=== PATIENT | male | born 1955 | race American Indian/Alaskan Native ===

== ENCOUNTER 2017-02-01 09:19 | Inpatient (IN) | payer BC, OTHER ==
--- NOTE | 2017-02-01 10:14 | ED PDOC ---
Arrival/HPI - General Chief Complaint: Weakness/Neurological Deficit Time Seen by Provider: 02/01/17 09:27 Historian: Patient - History of Present Illness Narrative History of Present Illness (Text): 02/01/17 10:05 61yr old male with hx of hypertension and DM presents today with an episode of aphasia last night 8pm. pt states he was in the food storeTalking on the phone when suddenly he was unable to say how much an item cost. Patient states he was stuttering and unable to get any words out. pt states this lasted about 10 minutes and then symptoms resolved completely. Patient states when he got home he checked his blood pressure and his blood pressure was elevated. Patient states at the time that he couldn't speak he felt a tingling sensation in his left arm. Patient at present time denies headache dizziness or weakness. Denies chest pain or shortness of breath. Denies abdominal pain.patient states he has been noncompliant with his blood pressure medications. Time/Duration: Other (last night for 10 minutes) Symptom Onset: Sudden Symptom Course: Resolved Past Medical History - Provider Review Nursing Documentation Reviewed: Yes - Travel History Have you recently traveled outside [place] w/in the past 3 mons?: No - Infectious Disease Hx of Infectious Diseases: None - Tetanus Immunization Tetanus Immunization: Unknown - Cardiac Hx Hypertension: Yes - Endocrine/Metabolic Hx Diabetes Mellitus Type 2: Yes - Psychiatric Hx Substance Use: No Family/Social History - Physician Review Nursing Documentation Reviewed: Yes Family/Social History: Unknown Family HX Smoking Status: Never Smoked Hx Alcohol Use: No Hx Substance Use: No Allergies/Home Meds Allergies/Adverse Reactions: Allergies No Known Allergies Allergy (Verified 02/01/17 09:43) Home Medications: Home Meds Medication Instructions Recorded Confirmed Linagliptin/Metformin HCl 1 tab PO BID 02/01/17 02/01/17 [Jentadueto 2.5 mg-1000 mg Tab] Losartan/Hydrochlorothiazide 1 tab PO DAILY 02/01/17 02/01/17 [Losartan-Hctz 100-12.5 mg Tab] Metoprolol Succinate [Toprol XL] 200 mg PO DAILY 02/01/17 02/01/17 Repaglinide [Prandin] 1 mg PO TID 02/01/17 02/01/17 Review of Systems - Review of Systems Constitutional: absent: Fatigue, Fevers Eyes: absent: Vision Changes, Photophobia, Eye Pain Respiratory: absent: SOB, Cough Cardiovascular: absent: Chest Pain, Palpitations Gastrointestinal: absent: Abdominal Pain, Nausea, Vomiting Genitourinary Male: absent: Dysuria Musculoskeletal: absent: Arthralgias, Back Pain Skin: absent: Rash Neurological: Speech Changes. absent: Headache, Dizziness, Focal Weakness, Gait Changes, Disequilibrium, Seizure Psychiatric: absent: Anxiety, Depression, Suicidal Ideation Physical Exam Vital Signs Reviewed: Yes Vital Signs Temp Pulse Resp BP Pulse Ox 02/01/17 11:47 51 L 18 148/77 100 02/01/17 11:04 51 L 142/77 02/01/17 11:03 52 L 02/01/17 10:40 48 L 224/112 H 02/01/17 10:39 48 L 224/112 H 02/01/17 10:31 48 L 18 224/112 H 99 02/01/17 09:34 97.8 F 46 L 16 204/68 H 98 Temperature: Afebrile Blood Pressure: Normal Pulse: Regular Respiratory Rate: Normal Appearance: Positive for: Well-Appearing, Non-Toxic, Comfortable Pain Distress: None Mental Status: Positive for: Alert and Oriented X 3 - Systems Exam Head: Present: Atraumatic, Other (slight left sided facial droop) Pupils: Present: PERRL Extroacular Muscles: Present: EOMI Conjunctiva: Present: Normal Ears: Present: Normal Mouth: Present: Moist Mucous Membranes Pharnyx: Present: Normal. No: ERYTHEMA, EXUDATE, Peritonsilar Swelling, Uvular Deviation Nose (External): Present: Atraumatic Nose (Internal): Present: Clear Mucous Neck: Present: Normal Range of Motion Respiratory/Chest: Present: Clear to Auscultation, Good Air Exchange. No: Respiratory Distress, Accessory Muscle Use Cardiovascular: Present: Bradycardic Abdomen: No: Tenderness, Distention, Rebound, Guarding Back: Present: Normal Inspection Upper Extremity: Present: Normal Inspection, Normal ROM Lower Extremity: Present: Normal Inspection, Normal ROM Neurological: Present: GCS=15, Speech Normal, Gait Normal Skin: Present: Warm, Dry, Normal Color. No: Rashes Psychiatric: Present: Alert, Oriented x 3 Medical Decision Making ED Course and Treatment: 02/01/17 10:20 pt with aphasia last night, slight residual left sided asymmetry. Denying any complaints at present time. ekg; shows questionable st elevations in V2 V3 without reciprocal changes. Dr. weir immediately to bedside . dr alcantar paged. he reviewed EKG. repeat EKG sinus bradycardia with ST elevations in V2 without reciprocal changes 02/01/17 10:25 Dr. alcantar at bedside; He evaluated patient; pt without chest pain or shortness of breath, no symptoms currently; Dr. alcantar advised NO code heart. He advised IV hydralazine. 02/01/17 11:27 after IV hydralazine BP improved. pt resting comfortably; no distress. Labs reviewed. head ct; FINDINGS: HEMORRHAGE: No intracranial hemorrhage. BRAIN: The sulci and cisterns and ventricular volume all appear within normal limits diffusely. However, a pattern of mild chronic microangiopathy is appreciate the subcortical and centrum semiovale white matter of the bilateral cerebral hemispheres nevertheless. Remaining brain densities are unremarkable the throughout the cerebellum and brainstem. There is no mass effect or suspicious extra-axial fluid collection appreciated at this time. VENTRICLES: Unremarkable. No hydrocephalus. CALVARIUM: Unremarkable. PARANASAL SINUSES: Unremarkable as visualized. No significant inflammatory changes. MASTOID AIR CELLS: Unremarkable as visualized. No inflammatory changes. OTHER FINDINGS: None. IMPRESSION: Mild chronic microangiopathy is suspected. No intracranial hemorrhage, cortical edema or mass effect. Follow-up MRI or CT are available if clinically warranted. cxr; wnl ASA given PO dr. weir discussed case with dr. beltre; will admit impression; TIA, facial Asymmetry, uncontrolled hypertension admit tele. - Lab Interpretations Lab Results: 02/01/17 10:24 02/01/17 10:24 Lab Results 02/01/17 11:53: TSH 3rd Generation 1.61 02/01/17 10:24: Blood Type O POSITIVE, Antibody Screen Negative, BBK History Checked No verified bt 02/01/17 10:24: Sodium 139, Potassium 4.6, Chloride 98, Carbon Dioxide 29, Anion Gap 17, BUN 13, Creatinine 1.0, Est GFR ( Amer) > 60, Est GFR (Non- Af Amer) > 60, Random Glucose 239 H, Calcium 10.1, Total Bilirubin 0.8, AST 32, ALT 42, Alkaline Phosphatase 60, Troponin I < 0.01, Total Protein 8.5 H, Albumin 4.6, Globulin 3.9, Albumin/Globulin Ratio 1.2, Triglycerides 262 H, Cholesterol 226 H, LDL Cholesterol Direct 124, HDL Cholesterol 44 02/01/17 10:24: PT 11.0, INR 1.00, APTT 31.9 02/01/17 10:24: WBC 4.7, RBC 5.65, Hgb 16.1, Hct 47.8, MCV 84.6, MCH 28.5, MCHC 33.7, RDW 13.6, Plt Count 200, MPV 9.7, Gran % 63.6, Lymph % (Auto) 29.4, Mercer % (Auto) 6.2 H, Eos % (Auto) 0.6 L, Baso % (Auto) 0.2, Gran # 2.99, Lymph # 1.4 , Mercer # 0.3, Eos # 0.0, Baso # 0.01 - RAD Interpretation Radiology Orders: 02/01/17 09:46 HEAD W/O CONTRAST [CT] Stat CHEST PORTABLE [RAD] Stat 02/01/17 12:03 BRAIN W & WO CONTRAST [MRI] Stat MRA HEAD WITH CONTRAST [MRI] Stat CAROTID & VERTEBRAL DUPLEX [US] Stat - Medication Orders Current Medication Orders: Aspirin (Ecotrin) 325 mg PO DAILY [facility] Last Admin: 02/01/17 11:03 Dose: Enoxaparin Sodium (Lovenox) 40 mg SC DAILY [facility] PRN Reason: Protocol Hydralazine HCl (Apresoline) 50 mg PO BID [facility] Last Admin: 02/01/17 11:04 Dose: MAR Pulse and Blood Pressure Document 02/01/17 11:04 MR (Rec: 02/01/17 11:04 MR [id number]) Pulse Pulse Rate (60-90 beats/min) 51 Blood Pressure Blood Pressure (100/60-150/90 mm Hg) 142/77 Hydralazine HCl (Apresoline) 10 mg IVP Q6H PRN PRN Reason: for sbp>170 Insulin Detemir (Levemir) 10 unit SC ACBD [facility] Insulin Human Lispro (Humalog Med) 0 units SC AC [facility] PRN Reason: Protocol Losartan Potassium (Cozaar) 100 mg PO DAILY [facility] Pantoprazole Sodium (Protonix Ec Tab) 40 mg PO 0600,1600 [facility] Discontinued Medications Aspirin (Aspirin) 325 mg PO STAT STA Stop: 02/01/17 10:04 Last Admin: 10/26/17 10:41 Dose: 325 mg Hydralazine HCl (Apresoline) 10 mg IVP STAT ONE Stop: 02/01/17 10:31 Last Admin: 02/01/17 10:40 Dose: 10 mg IVP Administration Document 02/01/17 10:40 MR (Rec: 02/01/17 10:40 MR [id number]) Charges for Administration # of IVP Administrations 1 MAR Pulse and Blood Pressure Document 02/01/17 10:40 MR (Rec: 02/01/17 10:40 MR [id number]) Pulse Pulse Rate (60-90 beats/min) 48 Blood Pressure Blood Pressure (100/60-150/90 mm Hg) 224/112 Nicardipine HCl (Cardene Iv Premix) 20 mg in 200 mls @ 50 mls/hr IV .Q4H PRN; Protocol; 5 MG/HR PRN Reason: TITRATE PER MD ORDER Last Admin: 02/01/17 10:39 Dose: 50 mls/hr eMAR Start Stop Document 02/01/17 10:39 MR (Rec: 02/01/17 10:40 MR [id number]) Intravenous Solution Start Date 02/01/17 Start Time 10:40 End Date 02/01/17 End time 11:02 Total Infusion Time 22 JUN Pulse and Blood Pressure Document 02/01/17 10:39 MR (Rec: 02/01/17 10:40 MR [id number]) Pulse Pulse Rate (60-90 beats/min) 48 Blood Pressure Blood Pressure (100/60-150/90 mm Hg) 224/112 Re-Assess: Re-Assessment for infusion Document 02/01/17 11:01 MR (Rec: 02/01/17 11:01 MR [id number]) Infusion Charges Initiated Have Infusion Stop Date and Time been Yes entered? Losartan Potassium (Cozaar) 100 mg PO STAT STA Stop: 02/01/17 10:38 Last Admin: 02/01/17 11:05 Dose: Metoprolol Tartrate (Lopressor) 25 mg PO BID [facility] Last Admin: 02/01/17 11:03 Dose: Not Given Non-Admin Reason: BP Parameters Not Met MAR Pulse and Blood Pressure Document 02/01/17 11:03 MR (Rec: 02/01/17 11:03 MR [id number]) Pulse Pulse Rate (60-90 beats/min) 52 NIHSS Scale ([place]) Time Performed: 10:05 - How Severe is the Stoke Baseline Level of Consciousness: 0=Alert LOC to Questions: 0=Both comments correct LOC to commands: 0=Obeys both correctly Best Gaze: 0=Normal Visual: 0=No visual loss Facial: 1=Minor asymmetry Motor Arm - Left: 0=No drift Motor Arm - Right: 0=No drift Motor Leg - Left: 0=No drift Motor Leg - Right: 0=No drift Limb Ataxia: 0=Absent Sensory: 0=Normal Best Language: 0=No aphasia Dysarthia: 0=Normal articulation Extinction & Inattention (Neglect): 0=Normal, no object Score: 1 Risk Level: Minor Stroke Risk rTPA Inclusion/Exclusion - Refusal of Treatment Patient Refused Treatment: No - Inclusion Criteria for Altepase Patient is 18 years or Older: Yes The Clinical Diagnosis of Ischemic Stroke That is Causing a Potentially Disabling Neurological Deficit: No Time of Onset is Well Established to be Less Than 270 Minute Before Treatment Would Begin: No Risk/Benefit Discussed With Patient/Family Member Present: No Disposition/Present on Arrival - Present on Arrival Any Indicators Present on Arrival: No History of DVT/PE: No History of Uncontrolled Diabetes: No Urinary Catheter: No History of Decub. Ulcer: No History Surgical Site Infection Following: None - Disposition Have Diagnosis and Disposition been Completed?: Yes Diagnosis: TIA (transient ischemic attack), Facial asymmetry, Uncontrolled hypertension Disposition: HOSPITALIZED Disposition Time: 11:13 Patient Plan: Admission Patient Problems: Current Active Problems Problem Status Onset Facial asymmetry Acute TIA (transient ischemic attack) Acute Uncontrolled hypertension Acute Condition: FAIR
[2017-02-01] MEDS ORDERED: Lidocaine 2% Inj (20ml) ONE (10:26)
[2017-02-01] MEDS ORDERED: Nitroglycerin 50mg in D5W 0 MG/0 ML BOTTLE IV ONE (10:27)
[2017-02-01] MEDS ORDERED: Iodixanol 320 MG/ML 200 ML BOTTLE IV ONE (10:27)
[2017-02-01] MEDS ORDERED: Iodixanol 320 MG/ML 100 ML BOTTLE IV ONE (10:27)
[2017-02-01] MEDS ORDERED: Heparin 0 ML IV ONE (10:27)
[2017-02-01] MEDS ORDERED: Iohexol 350mgl/ml 50 ML ONE (10:27)
[2017-02-01] MEDS ORDERED: Phenylephrine 10 mg/ml Inj ONE (10:28)
[2017-02-01 10:29] LABS: BASO # 0.01 K/mm3 (0.0-2.0); BASO % 0.2 % (0.0-3.0); EOS % 0.6 % (1.5-5.0); GRAN # 2.99 (1.4-6.5); GRAN % 63.6 % (50.0-68.0); HEMATOCRIT 47.8 % (42.0-52.0); LYMPH # 1.4 (1.2-3.4); LYMPH % 29.4 % (22.0-35.0); MEAN CELL VOLUME 84.6 fl (80.0-105.0); MEAN CORPUSCULAR HEMOGLOBIN 28.5 pg (25.0-35.0); MEAN CORPUSCULAR HGB CONC 33.7 g/dl (31.0-37.0); MEAN PLATELET VOLUME 9.7 fl (7.0-11.0); MONO # 0.3 (0.1-0.6); MONO % 6.2 % (1.0-6.0); RED CELL DISTRIBUTION WIDTH 13.6 % (11.5-14.5); WHITE BLOOD COUNT 4.7 10^3/ul (4.5-11.0)
[2017-02-01] MEDS ORDERED: Nicardipine 20 MG/200 ML 20 MG/200 ML BAG IV PRN (10:29)
[2017-02-01 10:40] LABS: ALB/GLOB RATIO 1.2 (1.1-1.8); ALKALINE PHOSPHATASE 60 U/L (38-126); ALT/SGPT 42 U/L (7-56); AST/SGOT 32 U/L (17-59); BILIRUBIN,TOTAL 0.8 mg/dL (0.2-1.3); BLOOD UREA NITROGEN 13 mg/dL (7-21); CALCIUM 10.1 mg/dL (8.4-10.5); CARBON DIOXIDE 29 mmol/L (21-33); CHLORIDE 98 mmol/L (98-107); CHOLESTEROL 226 mg/dL (130-200); GFR AFRICAN-AMERICAN > 60; GLUCOSE,RANDOM 239 mg/dL (70-110); PARTIAL THROMBOPLASTIN TIME 31.9 Seconds (25.1-36.5); POTASSIUM 4.6 mmol/L (3.6-5.0); SODIUM 139 mmol/L (132-148); TOTAL PROTEIN 8.5 g/dL (5.8-8.3)
[2017-02-01 10:56] LABS: TROPONIN I < 0.01 ng/mL
[2017-02-01] MEDS: Aspirin 325 mg EC Tablets PO SCH (11:03)
--- NOTE | 2017-02-01 11:05 | CT ---
PROCEDURE: CT HEAD WITHOUT CONTRAST. HISTORY: aphasia which resolved. TIA COMPARISON: None available. TECHNIQUE: Axial computed tomography images were obtained through the head/brain without intravenous contrast. Radiation dose: Total exam DLP = 726.57 mGy-cm. This CT exam was performed using one or more of the following dose reduction techniques: Automated exposure control, adjustment of the mA and/or kV according to patient size, and/or use of iterative reconstruction technique. FINDINGS: HEMORRHAGE: No intracranial hemorrhage. BRAIN: The sulci and cisterns and ventricular volume all appear within normal limits diffusely. However, a pattern of mild chronic microangiopathy is appreciate the subcortical and centrum semiovale white matter of the bilateral cerebral hemispheres nevertheless. Remaining brain densities are unremarkable the throughout the cerebellum and brainstem. There is no mass effect or suspicious extra-axial fluid collection appreciated at this time. VENTRICLES: Unremarkable. No hydrocephalus. CALVARIUM: Unremarkable. PARANASAL SINUSES: Unremarkable as visualized. No significant inflammatory changes. MASTOID AIR CELLS: Unremarkable as visualized. No inflammatory changes. OTHER FINDINGS: None. IMPRESSION: Mild chronic microangiopathy is suspected. No intracranial hemorrhage, cortical edema or mass effect. Follow-up MRI or CT are available if clinically warranted.
--- NOTE | 2017-02-01 11:43 | CON ---
DATE: 02/01/2017 REASON FOR CONSULTATION: Abnormal EKG, possible code STEMI evaluation. BRIEF CLINICAL HISTORY: A 61-year-old -Gabones[place] male with past medical history significant for diabetes, hypertension, very noncompliant with the medication, takes off and on medication, multiple antihypertensive medications and yesterday came in because the patient's blood pressure was elevated and unable to talk yesterday, so the patient came to the emergency room. Denies any chest pain. Denies any shortness of breath. Denies any palpitation. EKG, admitting, shows ST elevation with conduction abnormality, so a stat cardiology consult was called for possible activation of code STEMI. PAST MEDICAL HISTORY: Significant for hypertension and borderline diabetes. SOCIAL HISTORY: Denies smoking. Denies any history of alcohol abuse. 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 CURRENT MEDICATIONS: The patient at home show metoprolol succinate 200 mg daily, losartan and hydrochlorothiazide 1 tablet daily, metformin 1 tablet daily and Prandin. REVIEW OF SYSTEMS: As follows: No chest pain. No shortness of breath. No palpitation. PHYSICAL EXAMINATION: VITAL SIGNS: Temperature afebrile, heart rate 48 and blood pressure 224/112. HEENT: PERRLA, intact. NECK: Supple. No carotid bruit or thyromegaly. CHEST: Clear to auscultation. HEART: S1 and S2 regular. ABDOMEN: Soft. EXTREMITIES: Clubbing and cyanosis negative. LABORATORY DATA: Blood workup pending. EKG showed normal sinus, incomplete right bundle branch block with ST elevation in lead V2, ST depression noted, more conduction abnormality. ASSESSMENT: Abnormal EKG, more incomplete right bundle and conduction abnormality, but no evidence of acute myocardial infarction, no evidence of chest pain, the patient denies since yesterday, more like after transient ischemic attack type, cerebrovascular accident symptoms; uncontrolled hypertension, admitting blood pressure was 224/116. RECOMMENDATIONS: We will hold off cardiac code STEMI activation, hold off heparin for now. Stat CAT scan and CT head. Give IV hydralazine. Start losartan p.o., beta ghassan and hydralazine p.o. as well. Close monitoring, neuro evaluation. Further, we will get stat echo, lipid profile, TSH, hemoglobin A1c and series of CPK and troponin. The patient does not fit in the criteria of code STEMI because no chest pain, multiple times asked. The patient came in because of aphasia, most likely of CVA. In case of the patient is having middle of CVA and if we treat the patient as MA could be more detrimental. We will follow closely with you. Thank you ER physician, for providing us the opportunity in taking care of the patient, Marvel Zamarripa. Juan Figueroa MD
[2017-02-01] MEDS ORDERED: Metoprolol Succinate 100 mg XL Tab PO SCH (12:00)
--- NOTE | 2017-02-01 12:22 | RAD ---
HISTORY: TIA COMPARISON: No prior. FINDINGS: LUNGS: No active pulmonary disease. PLEURA: No significant pleural effusion identified, no pneumothorax apparent. CARDIOVASCULAR: Normal. OSSEOUS STRUCTURES: No significant abnormalities. VISUALIZED UPPER ABDOMEN: Normal. OTHER FINDINGS: None. IMPRESSION: No active disease.
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
[2017-02-01] MEDS ORDERED: Gadodiamide 287 MG/ML VIAL (15ML) IV ONE (13:19)
--- NOTE | 2017-02-01 13:40 | MRI ---
PROCEDURE: Magnetic Resonance Angiography Brain HISTORY: CVA COMPARISON: None available. TECHNIQUE: 3D time of flight MR angiography of the intracranial arteries was performed. Rotating maximum intensity projection images were generated. FINDINGS: INTERNAL CAROTID ARTERIES: Atherosclerotic changes are seen in the carotid arteries with no critical stenosis ANTERIOR CEREBRAL ARTERIES: Unremarkable. A1 and A2 segments are widely patent. Smaller distal branches unremarkable, as visualized. MIDDLE CEREBRAL ARTERIES: Diffuse atherosclerotic changes are seen with no critical stenosis. POSTERIOR CIRCULATION: Basilar Artery: Unremarkable. Distal Vertebral Arteries: Unremarkable. Posterior Cerebral Arteries: Unremarkable. Posterior Inferior Cerebellar Arteries: Unremarkable. ANEURYSM/ VASCULAR MALFORMATIONS: None. OTHER FINDINGS: None. IMPRESSION: Diffuse atherosclerotic changes especially in the internal carotid and middle cerebral arteries bilaterally. No critical stenosis or occlusion
--- NOTE | 2017-02-01 14:08 | CARD ---
APPROVED REPORT EKG Measurement Heart [id number] [id number] <Conclusion> Marked sinus bradycardia Incomplete right bundle branch block Minimal voltage criteria for LVH, may be normal variant Inferior infarct, age undetermined Anterolateral injury pattern ACUTE CA
--- NOTE | 2017-02-01 14:09 | CARD ---
APPROVED REPORT EKG Measurement Heart [id number] [place] [id number] [id number] <Conclusion> Marked sinus bradycardia Incomplete right bundle branch block Minimal voltage criteria for LVH, may be normal variant Inferior infarct, age undetermined Anterolateral injury pattern ACUTE [place] No change c/w earlier ECG
--- NOTE | 2017-02-01 14:11 | MRI ---
PROCEDURE: MRI BRAIN WITH AND WITHOUT CONTRAST HISTORY: CVA COMPARISON: None. TECHNIQUE: Multiplanar, multisequence MR images of the brain were obtained with and without intravenous contrast enhancement. 15 cc of Omniscan FINDINGS: HEMORRHAGE: None DWI: No evidence of an acute or early subacute infarction. BRAIN PARENCHYMA: No mass,mass effect or edema. Chronic microvascular changes are seen in the periventricular white matter. ENHANCEMENT: No abnormal intracranial enhancement. VENTRICLES: Unremarkable. No hydrocephalus. CRANIUM: Unremarkable. ORBITS: Grossly unremarkable. PARANASAL SINUSES/MASTOIDS: Clear VASCULAR SYSTEM: Skull base flow voids intact. OTHER FINDINGS: None . IMPRESSION: Chronic microvascular changes in the periventricular white matter. No acute intracranial findings.
[2017-02-01] MEDS: Pantoprazole 40 mg EC Tab PO SCH (15:23)
[2017-02-01 15:41] VITALS: BMI 24.9
[2017-02-01] MEDS ORDERED: Pneumococcal 23-Valent Vaccine IM ONE (15:41)
[2017-02-01] MEDS ORDERED: Influenza Vaccine 60 mcg/0.5 mL SYR (4YR UP) IM ONE (15:41)
[2017-02-01 16:03] LABS: TROPONIN I 0.01 ng/mL
[2017-02-01] MEDS: Insulin Lispro (humaLOG) MEDIUM Coverage SC SCH (17:00)
[2017-02-01] MEDS: Insulin Detemir 100 units/ml Vial (Levemir) SC SCH (17:01)
--- NOTE | 2017-02-01 17:40 | US ---
PROCEDURE: Bilateral carotid artery duplex ultrasound HISTORY: Carotid stenosis CVA PHYSICIAN(S): Doni Pablo MD. TECHNIQUE: Duplex sonography and color-flow Doppler were used to evaluate the carotid bifurcations and limited segments of the vertebral arteries bilaterally. The exam is somewhat limited by tortuous vessels. FINDINGS: There is diffuse mild smooth heterogeneous plaque noted at the carotid bifurcations bilaterally. The peak systolic velocity in the proximal right internal carotid artery is 69 cm/sec. This corresponds to a 20 to 39% proximal right ICA stenosis. Normal systolic velocities are noted in the proximal right external carotid artery. There is antegrade flow in the right vertebral artery. The peak systolic velocity in the proximal left internal carotid artery is 95 cm/sec. This corresponds to a 20 to 39% proximal left ICA stenosis. Normal systolic velocities are noted in the proximal left external carotid artery. There is antegrade flow in the left vertebral artery. IMPRESSION: 1. Bilateral 20-39% proximal ICA stenoses. 2. Antegrade flow in both vertebral arteries.
[2017-02-01 18:18] VITALS: RESP 20
[2017-02-01 20:44] LABS: TROPONIN I 0.02 ng/mL
--- NOTE | 2017-02-02 03:09 | HP ---
HISTORY OF PRESENT ILLNESS: The patient is a 61-year-old male who presented to the emergency room with complaints of episode of aphasia and slurred speech which happened last night around 8 to 9 p.m. The patient did not seek any medical care last night and took some Minty which was given to the patient by his family member. This morning, the patient came to the emergency room for evaluation of slurred speech and had episode of aphasia. The patient's above symptoms were reported as per the triage note. According to the ER physician note, the patient had an episode of speech problems and aphasia and slurred speech last night. According to the patient, he was at the food store, while talking on the phone, the patient was suddenly unable to say how much an item cost. The patient has noticed to start stuttering and unable to gets word out. According to the patient, the symptoms lasted about 10 minutes, then the symptoms resolves completely. According to the patient, he went home and checked his blood pressure, blood pressure was elevated. The patient also stated that he had a tingling sensation in the left upper extremity. REVIEW OF SYSTEMS: A 13 system review was done, pertinent positive negative dictated above. CODE STATUS: Full code. LIVING WILL ADVANCE DIRECTIVE: None. HEIGHT: 6 feet 1 inch. WEIGHT: 189. BMI: 25. HOME MEDICATIONS: Prandin 1 mg 3 times a day, Toprol-XL 200 mg daily, losartan and hydrochlorothiazide (Hyzaar) 100/12.5, Jentadueto 2.08/999 mg twice a day. SUBSTANCES HISTORY: Negative for alcohol smoking, drug use or communicable transmissible disease. 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 FAMILY HISTORY: Father in the age of 86 and 85 with complications of diabetes. Mother also at the age of mid 80s secondary to diabetic complications. The patient is a . PAST MEDICAL AND SURGICAL HISTORY: History of non-insulin requiring diabetes mellitus, history of hypertension. The patient denies any history of cerebral infarct. Denies any history of coronary artery disease or myocardial infarction. PHYSICAL EXAMINATION: GENERAL: The patient is seen, lying in the bed. The patient's daughter is at bedside. VITAL SIGNS: T-max 97.8. Telemetry shows sinus bradycardia in 40s and 50s; initial blood pressure 204/68, 224/112, 142/77, 180/91, 140/77, 154/74 and 160/87; respiration 18 and O2 sat is 98% to 99%. HEENT: The patient's head examination is normocephalic, atraumatic. HEENT examination shows positive left-sided facial droop noted. [place] conjunctivae. Anicteric sclerae. Dry oral mucosa. NECK: No neck rigidity. CHEST: Kyphosis. CARDIOVASCULAR: S1, S2, bradycardic rhythm. LUNG: Shows no rales, crackles or wheezing. ABDOMEN: Soft. Positive bowel sound. GENITALIA: Male. RECTAL: Deferred. EXTREMITY: Shows no pitting edema. No calf tenderness. No Homans signs. NEUROLOGIC: The patient's motor strength appears to be intact. Gimzwf-otzf-wyrlyb coordination is intact. Romberg sign is negative. Motor strength of the upper and lower extremity, proximal and distal is intact. Hand mass communications instructor is intact. SKIN: Without any lesions. PSYCHIATRIC: Negative. MUSCULOSKELETAL: Shows a body mass index of 25. DIAGNOSTICS: WBC 4.7, hemoglobin/hematocrit 16.1/47.8, platelet 200,000. PT/PTT 11 and 32. Sodium 139, potassium 4.6, chloride 98, CO2 of 29, anion gap 17, BUN 13, creatinine 1.0, GFR greater than 60, glucose 239, hemoglobin A1c 10.5. LFTs are normal. Troponin 0.01. Triglyceride 262, cholesterol 226, LDL 124, TSH 1.6. Blood type O positive. Chest x-ray, no active disease. The patient's EKG was done which shows sinus bradycardia, Q-wave in III and questionable ST elevation, V2 V3. Initially, ER physicians called the patient for a Code Heart, but the patient was evaluated in the emergency room. The patient was cleared for Code Heart and the patient was found not to be Code Heart. The patient was also found to have incomplete right bundle-branch block. The patient had a CT of the head done in the emergency room, mild chronic microangiopathy noted. After the patient's Code Heart was called off, the patient was seen and evaluated in the emergency room. The patient was given aspirin. The patient was given hydralazine. The patient was advised to be admitted. IMPRESSION: A 61-year-old male with history of hypertension, diabetes presented with more than 12 hours history of episode of expressive aphasia and slurred speech and disability. 1. Questionable transient ischemic infarct versus cerebrovascular accident. 2. Episode of expressive aphasia, dysarthria and slurred speech. 3. Uncontrolled accelerated hypertension. 4. Uncontrolled diabetes mellitus with hyperglycemia and hemoglobin A1c of 10.5. 5. Hypercholesterolemia, hypertriglyceridemia with elevated LDL. 6. Marked sinus bradycardia with incomplete right bundle-branch block and age indeterminate anterior anterolateral infarct. 7. Marked sinus bradycardia with incomplete right bundle-branch block and hypertensive cardiovascular disease and age indeterminate inferior anterolateral infarct. 8. Hypertensive cardiovascular disease. 9. Microangiopathy disease of the subcortical and centrum semiovale white matter of the bilateral cerebral hemisphere. 10. Bilateral cerebellum and brainstem densities. 11. Incomplete right bundle-branch block. 12. Abnormal EKG. 13. History of type 2 diabetes mellitus. 14. Left-sided facial asymmetry. PLAN: At this time, the patient will be admitted to telemetry. The patient has been ordered MRI, MRA of the brain, carotid Dopplers, repeat EKG, repeat cardiac enzymes. Cardiology consultation, Dr. Choudhury and Neurology consultation, Dr. Nixon has been requested. The patient was started on hydralazine 50 mg twice a day, Cozaar 100 mg daily, aspirin 325 mg daily. The patient was started on Humalog medium dose sliding scale coverage before meals. The patient was started on Levemir 10 units before meals, breakfast and dinner; Lopressor 25 mg once a day. Lovenox 40 mg subcu daily, Protonix 40 mg daily. Repeat EKG ordered. Echo with Doppler ordered. The patient's has been ordered consistent carbohydrate diet. At present, was met with the patient and the patient's daughter, Pinky who was present at the patient's bedside. The patient and the patient's daughter were explained about the details of patient's medical condition. The patient was told about the possibilities of cerebral infarct and abnormal EKG and possibilities of cardiac issues and abnormal EKG was explained to the patient. The patient was advised about possibilities of a mini stroke versus major stroke. Brain stroke was explained to the patient at length, which he acknowledged understand. All of the above was discussed and explained to the patient and the patient's daughter at length and all questions concerned answered, which they acknowledged understand. The patient was advised that the patient will require further diagnostic therapeutic interventions and further evaluation by Neurology and Cardiology who will determine the patient's final disposition. The patient's oral hypoglycemic at this time is held. The patient's beta ghassan was decreased from 200 mg daily to 25 mg metoprolol daily because of bradycardia. At present, the patient's serial cardiac enzymes, serial EKG has been ordered. The patient has been ordered out of bed to chair. Dictated and electronically signed, not read. Colin Taylor MD
[2017-02-02] MEDS: Pantoprazole 40 mg EC Tab PO SCH (06:20)
[2017-02-02 06:43] LABS: BASO # 0.01 K/mm3 (0.0-2.0); BASO % 0.2 % (0.0-3.0); EOS % 0.8 % (1.5-5.0); GRAN # 2.4 (1.4-6.5); HEMATOCRIT 46.2 % (42.0-52.0); LYMPH # 2.1 (1.2-3.4); LYMPH % 42.4 % (22.0-35.0); MEAN CELL VOLUME 84.3 fl (80.0-105.0); MEAN CORPUSCULAR HEMOGLOBIN 28.1 pg (25.0-35.0); MEAN CORPUSCULAR HGB CONC 33.3 g/dl (31.0-37.0); MEAN PLATELET VOLUME 9.9 fl (7.0-11.0); MONO # 0.4 (0.1-0.6); MONO % 7.6 % (1.0-6.0); RED CELL DISTRIBUTION WIDTH 13.7 % (11.5-14.5); WHITE BLOOD COUNT 4.9 10^3/ul (4.5-11.0)
[2017-02-02 06:59] VITALS: O2SAT 99
[2017-02-02 07:03] LABS: ALB/GLOB RATIO 1.2 (1.1-1.8); ALKALINE PHOSPHATASE 52 U/L (38-126); ALT/SGPT 37 U/L (7-56); AST/SGOT 27 U/L (17-59); BILIRUBIN,DIRECT 0.4 mg/dL (0.0-0.4); BILIRUBIN,TOTAL 0.7 mg/dL (0.2-1.3); BLOOD UREA NITROGEN 14 mg/dL (7-21); CALCIUM 9.9 mg/dL (8.4-10.5); CARBON DIOXIDE 31 mmol/L (21-33); CHLORIDE 101 mmol/L (98-107); GFR AFRICAN-AMERICAN > 60; GLUCOSE,RANDOM 168 mg/dL (70-110); MAGNESIUM 1.8 mg/dL (1.7-2.2); PHOSPHOROUS 3.9 mg/dL (2.5-4.5); SODIUM 141 mmol/L (132-148); TOTAL PROTEIN 7.5 g/dL (5.8-8.3)
--- NOTE | 2017-02-02 08:37 | CARD ---
APPROVED REPORT EKG Measurement Heart [id number] NM [id number] <Conclusion> Normal sinus rhythm Possible Left atrial enlargement Right bundle branch block Possible Inferior infarct, age undetermined Anterior injury pattern ACUTE [place] No change except the rate is faster
--- NOTE | 2017-02-02 09:48 | CP.PCM.PN ---
Subjective - Date & Time of Evaluation Date of Evaluation: 02/02/17 Time of Evaluation: 09:00 - Subjective Subjective: PGY-[address] Taylor's service. Patient seen and examined at bedside. No acute distress. Patient states that he would like to go home today. Patient denies any chest pain, sob, n&v,diarrhea, constipation, headache, dizziness, weakness. Objective - Vital Signs/Intake and Output Vital Signs (last 24 hours): Temp Pulse Resp BP Pulse Ox 98.5 F 65 20 166/80 H 99 02/02/17 06:00 02/02/17 06:00 02/02/17 06:00 02/02/17 06:00 02/02/17 06:00 Intake and Output: 02/02/17 02/02/17 06:59 18:59 Intake Total 120 Output Total 0 Balance 120 - Medications Medications: Current Medications Aspirin (Ecotrin) 325 mg PO DAILY [facility] Last Admin: 02/01/17 11:03 Dose: Not Given Atorvastatin Calcium (Lipitor) 20 mg PO DIN [facility] Enoxaparin Sodium (Lovenox) 40 mg SC DAILY [facility] PRN Reason: Protocol Hydralazine HCl (Apresoline) 50 mg PO BID [facility] Last Admin: 02/01/17 17:06 Dose: 50 mg Hydralazine HCl (Apresoline) 10 mg IVP Q6H PRN PRN Reason: for sbp>170 Last Admin: 02/01/17 15:23 Dose: 10 mg Insulin Detemir (Levemir) 10 unit SC ACBD [facility] Last Admin: 02/01/17 17:01 Dose: 10 unit Insulin Human Lispro (Humalog Med) 0 units SC AC [facility] PRN Reason: Protocol Last Admin: 02/01/17 17:00 Dose: 1 units Losartan Potassium (Cozaar) 100 mg PO DAILY [facility] Metoprolol Tartrate (Lopressor) 25 mg PO DAILY [facility] Pantoprazole Sodium (Protonix Ec Tab) 40 mg PO 0600,1600 [facility] Last Admin: 02/02/17 06:20 Dose: 40 mg - Labs Labs: 02/02/17 05:10 02/02/17 05:10 PT 11.0 SECONDS (9.4-12.5) 02/01/17 10:24 INR 1.00 (0.93-1.08) 02/01/17 10:24 APTT 31.9 Seconds (25.1-36.5) 02/01/17 10:24 - Constitutional Appears: Well, No Acute Distress - Head Exam Head Exam: ATRAUMATIC, NORMAL INSPECTION, NORMOCEPHALIC - Eye Exam Eye Exam: EOMI, Normal appearance - ENT Exam ENT Exam: Mucous Membranes Moist - Respiratory Exam Respiratory Exam: Clear to Ausculation Bilateral, NORMAL BREATHING PATTERN. absent: Decreased Breath Sounds, Rales, Rhonchi, Wheezes, Respiratory Distress, Stridor - Cardiovascular Exam Cardiovascular Exam: REGULAR RHYTHM, +S1, +S2. absent: Tachycardia, Murmur - GI/Abdominal Exam GI & Abdominal Exam: Soft, Normal Bowel Sounds. absent: Distended, Firm, Tenderness - Extremities Exam Extremities Exam: Normal Inspection. absent: Pedal Edema, Tenderness - Neurological Exam Neurological Exam: Alert, Awake, CN II-XII Intact, Oriented x3. absent: Motor Sensory Deficit - Skin Skin Exam: Dry, Intact, Normal Color, Warm Assessment and Plan - Assessment and Plan (Free Text) Assessment: 61 year old male with past medical history of hypertension and Diabetes types 2 presents today with an episode of aphasia last night. Plan: 1. episode of aphasia with mild facial droop - TIA v. CVA - CT head showed mild chronic mircoangiopathy m no hemorrhage, edema, mass effect - ekg in ED showed some ST changes - echo pending - carotid US: Bilateral 20-39% proximal ICA stenoses - MRI: Chronic microvascular changes in the periventricular white matter. No acute intracranial findings - MRA: Diffuse atherosclerotic changes especially in the internal carotid and middle cerebral arteries bilaterally. No critical stenosis or occlusion MRI brain - trended troponins negative x3 - TSH within normal limits - hgbA1c 10.5, uncontrolled sugars - lopressor, hydralazine, losartan, asa 325 daily - Neurology consulted - cardiology consulted 2. HTN - uncontrolled - Metoprolol 25 daily - losartan 100mg - hydralazine 50 BID, and PRN 10 q6 if SBP >180 3. diabetes - elevated blood sugars - HgbA1c 10.5, indicating uncontrolled sugars, jentadueto at maxium dose, will increase prandin when discharged home - levemir 10 - ISS- low - fingerstick ACHS ppx - protonix - lovenox
[2017-02-02] MEDS ORDERED: Enoxaparin 40 mg Syringe SC SCH (10:00)
--- NOTE | 2017-02-02 10:32 | PN ---
DATE: 02/02/2017 REASON FOR CONSULTATION AND FOLLOWUP: Abnormal EKG and cardiac evaluation. Cardiology consult called for code STEMI evaluation. SUBJECTIVE: The patient denies any chest pain, shortness of breath, or any palpitation. Sitting on the bedside and doing exercise. OBJECTIVE: GENERAL: Not in apparent distress. VITAL SIGNS: As follows; temperature afebrile, heart rate 65, and blood pressure 166/80. HEENT: PERRLA. Extraocular muscles are intact. NECK: Supple. No carotid bruits. No thyromegaly. CHEST: Clear to auscultation. HEART: S1 and S2 regular. ABDOMEN: Soft. EXTREMITIES: Clubbing and cyanosis negative. LABORATORY DATA: Blood workup as follows; WBC of 4.9, hemoglobin of 15.5, hematocrit of 46.2, and platelet count 215. Chemistry shows sodium of 141, potassium of 4, chloride of 101, carbon dioxide of 31, anion gap of 13, BUN of 14 and creatinine of 1.1. Troponin 0.01 . TSH 1.61, triglycerides 262, cholesterol 226, LDL 124, and HDL 44. IMPRESSION: A 61-year-old male, with past medical history significant for hypertension, multiple medications, admitted with history of expressive aphasia night before, came in found to be incomplete right bundle code STEMI was called for evaluation for code STEMI. The patient did not have code STEMI, so code STEMI was canceled and aggressive medical treatment recommended. Echo pending. The patient's pressure is well controlled, so far no evidence of myocardial infarction. The patient is having neurological workup. Brain MRI was negative for acute stroke and no acute intracranial finding. RECOMMENDATIONS: We will continue to start Lipitor also and scheduled stress as an outpatient explained to the patient. The patient has been scheduled for stress thallium as an outpatient in one week. I explained to the patient about above. We will follow with you. Possible discharge planning and followup stress test as an outpatient. Once the neuro workup is done, the patient can be discharged home and we scheduled the stress test as an outpatient. Juan Figueroa MD
[2017-02-02] MEDS: Aspirin 325 mg EC Tablets PO SCH (11:27)
[2017-02-02] MEDS: Insulin Lispro (humaLOG) MEDIUM Coverage SC SCH ×2 (11:28→13:10)
[2017-02-02] MEDS: Insulin Detemir 100 units/ml Vial (Levemir) SC SCH (11:31)
[2017-02-02 12:13] VITALS: TEMP 98.6
--- NOTE | 2017-02-02 13:12 | CON ---
DATE: REASON FOR CONSULTATION: The patient has facial droop and resolved aphasia. HISTORY OF PRESENT ILLNESS: The patient is a 61-year-old male who has been asked for evaluation of aphasic symptoms. The patient apparently was in a store and talking and when he was talking on the phone, his words were not coming out. He was stuttering and unable to get words out. His symptoms lasted for about 10 minutes and then it would resolve. He returned home and again he was having some difficulty with speaking. He checked his blood pressure it was elevated. He also felt some tingling sensation in his left arm, that is why he came into the emergency room. The moment he feels fine, he has no focal weakness in the arms or legs. Denied any further difficulty with speech. Denies any other complaints. PAST MEDICAL HISTORY: Includes hypertension and diabetes mellitus. MEDICATIONS: At home include Toprol, losartan, hydrochlorothiazide, Prandin, and Jentadueto. ALLERGIES: NO KNOWN DRUG ALLERGIES. SOCIAL HISTORY: Denies smoking, use of alcohol, or illicit drugs. FAMILY HISTORY: Reviewed and noncontributory to the case. REVIEW OF SYSTEMS: Denies any headache, chest pain, shortness of breath, abdominal pain, constipation, diarrhea, dysuria, pyuria, cough, or sputum production. PHYSICAL EXAMINATION GENERAL: The patient is a pleasant male sitting in no acute distress. VITAL SIGNS: His blood pressure 150/90, heart rate is 113 per minute, breathing at the rate of 16, and temperature 98.5 degree Fahrenheit. HEENT: Normocephalic, atraumatic. NECK: Supple. There are no carotid bruits. LUNGS: Clear. CARDIOVASCULAR: S1 and S2 audible. No murmur. ABDOMEN: Soft and nontender. Bowel sounds positive. NEUROLOGIC: Mental status exam: The patient is awake, alert, and oriented to time, place, and person. Speech is fluent. Naming and repetition is normal. Memory and cognition are intact. CRANIAL NERVE EXAM: Pupils 3 mm bilaterally reactive to light. Visual ozuna are full. Extraocular movements are intact. There is questionable decrease nasolabial fold on the left side. Palate is upgoing bilaterally and tongue is midline. MOTOR EXAMINATION: Tone is normal. Power is 5/5 bilaterally in all extremities. Reflexes +1 and symmetric. Plantars are downgoing bilaterally. CEREBELLAR EXAMINATION: Finger to nose shows no dysmetria. Sensory examination is intact, but soft and pinprick. Gait is narrow based. LABORATORY DATA: MRI of the brain shows chronic microvascular ischemic changes in the periventricular white matter. No acute intracranial findings. He had MRA of the brain, which shows diffuse atherosclerotic changes especially in the internal carotid and middle cerebellar arteries bilaterally. He had a carotid ultrasound, which shows bilateral 20% to 39% proximal internal carotid artery stenosis. His WBC is 4.9, hemoglobin 15.4, hematocrit 46.2, and platelets 215. INR is 1. Sodium is 141, potassium 4.0, chloride 101, carbon dioxide content of 31, BUN of 14, creatinine of 1.1, and glucose of 168. IMPRESSION: Status post episode of difficulty with speech and slurring of speech associated with some questionable numbness and tingling sensation in the left arm. This is most likely secondary to transient ischemic attack. RECOMMENDATION: 1. The patient will have an electroencephalogram. 2. The patient to be continued on aspirin. 3. The patient will also be continued on statin. His cholesterol is 226 and LDL is 124. 4. The patient has complete resolution of his symptoms. 5. If EEG does not show any other pathology then he may be discharged with outpatient followup. Thank you for the opportunity in participating in the care of this patient. Clay Nixon MD
--- NOTE | 2017-02-02 14:27 | PN ---
ADDENDUM TO INITIAL PROGRESS NOTE DATE: REASON FOR ADDENDUM: Consult changed. After dictating the physician progress note, I got a call from Dr. Choudhury that he was requested by Dr. Taylor for a consult and followup. Since I already dictated the patient and echo was requested, we will sign off for now and I will transfer care of the patient, Marvel Zamarripa, under Dr. Choudhury. Echo has been already ordered earlier. We will follow with the echo. Again, as mentioned above, we will transfer care to Dr. Choudhury. Juan Figueroa MD
[2017-02-02 15:09] VITALS: BP 168/84
--- NOTE | 2017-02-02 16:11 | DS ---
FINAL PROGRESS NOTE AND DISCHARGE SUMMARY LOCATION: The patient is seen in room 261, bed 1. SUBJECTIVE: The patient is alert, awake, responsive, ambulating, on the phone. The patient speech has cleared up. The patient's overnight nurse's notes were reviewed. No adverse events noted. PHYSICAL EXAMINATION: VITAL SIGNS: T-max 97.8; heart rate 54, 51, 55, 65; blood pressure 150/90, 166/80, 148/77; respiration 20; O2 sat 99%. HEENT: Head: Normocephalic, atraumatic. Shows questionable left-sided fascial asymmetry. NECK: No neck rigidity. Soft carotid bruit. CHEST: Kyphosis. LUNGS: Shows no rales, crackles or wheezing. CARDIOVASCULAR: S1, S2, regular rhythm. Questionable soft systolic murmur left sternal border, right second intercostal space. ABDOMEN: Soft. Positive bowel sounds. GENITALIA: Male. RECTAL: Deferred. EXTREMITIES: Shows no pitting edema. No calf tenderness. No Homans sign. NEUROLOGIC: The patient is alert, awake, oriented x3. Cranial nerves II-XII grossly intact. Gait examination is independent. VASCULAR: Palpable pulses. Plantars are downward. DTRs at 2+. DIAGNOSTICS: WBC 4.9, hemoglobin/hematocrit 15.4 and 46.2, platelet 215. Sodium 141, potassium 4.0, chloride 101, CO2 of 31, anion gap 13, BUN 14, creatinine 1.1, GFR greater than 60. Glucose 209, 168, 225, 181. Hemoglobin A1c was 10.5. Three sets of cardiac enzymes are negative. Cholesterol 226, triglyceride 262, LDL 124, HDL 44. Blood type O+. MRA of the brain, carotid ultrasound, reviewed. Echocardiogram done, results pending. EKG reviewed. FINAL IMPRESSION AND DISCHARGE DIAGNOSES: 1. Questionable and possible transient ischemic infarct with episode of expressive aphasia slurred speech. 2. Uncontrolled accelerated hypertension. 3. Sinus bradycardia. 4. Hypertension. 5. Uncontrolled non-insulin requiring diabetes mellitus with hemoglobin A1c of 10.5. 6. Hypercholesterolemia, hypertriglyceridemia with elevated LDL. 7. Chronic microvascular ischemic disease of the periventricular white matter. 8. Bilateral 20% to 39% proximal internal carotid artery stenosis. 9. Diffuse atherosclerotic changes of the middle cerebral arteries and internal carotid artery. 10. Atherosclerotic changes of the internal carotid artery and middle cerebral arteries. 11. Right bundle-branch block. 12. Age indeterminate inferior infarct with anterior injury pattern. 13. Hypertensive cardiovascular disease. 14. Anterolateral injury pattern on EKG. 15. Echocardiogram results pending. EKG reviewed. 16. Left ventricle ejection fraction of greater than 65%. 17 Concentric left ventricular hypertrophy 18 Grade 3 restrictive reversible diastolic dysfunction. 19.Mild to trace mitral regurgitation. The patient is desperately wanting to go home. The patient has improved significantly since 24 hours. The patient has been ordered to be discharged home after cleared by Neurology. The patient is to follow up with Dr. Taylor within 1 week. As per updated ambulatory orders. The patient will be given new scripts to the patient on discharge. Copy of diet to the patient upon discharge. DISCHARGE MEDICATIONS: After the patient cleared by neurology it will be Ecotrin 325 mg daily, Lipitor 40 mg daily, hydralazine 10 mg twice a day, Jentadueto 2.08/999 mg twice a day, Hyzaar 100/12.5 mg daily, Lopressor decreased to 25 mg daily, Prandin increased to 2 mg three times a day. The patient will be discharged after cleared by neurology. During this hospitalization, the patient's daughter, Pinky, who was explained about the patient's condition, diagnoses, test results, recommendation by all physicians who involved in the care of the patient was explained to the patient at length in layman's language. All questions concerned answered. Time spent in the entire discharge process more than 45 minutes. Dictated and electronically signed, not read. Dictated and electronically signed not read. Colin Taylor MD MTDD
[2017-02-02 16:54] VITALS: PULSE 55
--- NOTE | 2017-02-02 17:51 | CARD ---
APPROVED REPORT EXAM: Two-dimensional and M-mode echocardiogram with Doppler and color Doppler. INDICATION Abnormal EKG/Arrhythmia CVA/TIA LVFX 2D DIMENSIONS Left Atrium (2D)4.5 (1.6-4.0cm)IVSd1.7 (0.7-1.1cm) LVDd4.1 (3.9-5.9cm)PWd1.6 (0.7-1.1cm) LVDs2.6 (2.5-4.0cm)FS (%) 35.5 % LVEF (%)65.4 (>50%) M-Mode DIMENSIONS Aortic Root3.60 (2.2-3.7cm)Aortic Cusp Exc.1.80 (1.5-2.0cm) Aortic Valve AoV Peak Ezfnkofm270.0cm/Vida Peak GR.8mmHg Mitral Valve MV E Vzrmuxsj61.3cm/sMV A Vupswdup86.9cm/sE/A ratio0.6 TDI Lateral E' Peak V6.14cm/sMedial E' Peak V4.39cm/sE/Lateral E'9.5 E/Medial E'13.3 Pulmonary Valve PV Peak Hdvaathc59.5cm/sPV Peak Grad.3mmHg Tricuspid Valve TR Peak [id number]/sRAP [id number] Peak Gr.15mmHg [id number] LEFT VENTRICLE The left ventricle is normal size. There is moderate concentric left ventricular hypertrophy.Obliterating mid LV cavity. The left ventricular function is normal.EF-65% There is normal LV segmental wall motion. Transmitral Doppler flow pattern is Grade III-reversible restrictive diastolic dysfunction. No left ventricle thrombus noted on this study. There is no ventricular septal defect visualized. There is no left ventricular aneurysm. There is no mass noted in the left ventricle. RIGHT VENTRICLE The right ventricle is normal size. There is normal right ventricular wall thickness. The right ventricular systolic function is normal. ATRIA The left atrium is mildly dilated. The right atrium size is normal. The interatrial septum is intact with no evidence for an atrial septal defect. AORTIC VALVE The aortic valve is thickened but opens well. No aortic regurgitation is present. There is no aortic valvular stenosis. There is no aortic valvular vegetation. MITRAL VALVE The mitral valve is thickened but opens well. Mitral regurgitation is trace to mild. There is no mitral valve stenosis. There is no evidence of mitral valve prolapse. TRICUSPID VALVE The tricuspid valve leaflets are thickened , but open well. There is trace to mild tricuspid regurgitation.RVSP-25 mmof hg. There is no tricuspid valve stenosis. There is no tricuspid valve prolapse or vegetation. PULMONIC VALVE The pulmonic valve is not well visualized. GREAT VESSELS The aortic root is normal in size. The ascending aorta is normal in size. The pulmonary artery is normal. The IVC is normal in size and collapses >50% with inspiration. PERICARDIAL EFFUSION There is no pleural effusion. There is no pericardial effusion. <Conclusion> The left ventricle is normal size. There is moderate concentric left ventricular hypertrophy.Obliterating mid LV cavity. The left ventricular function is normal.EF-65% Mitral regurgitation is trace to mild. There is trace to mild tricuspid regurgitation.RVSP-25 mmof hg.
== END 2017-02-02 17:01 | disposition home or self-care (01) | DRG 69 ==
LOC: ED 09:19 → ERH 11:59 → 2RNO 14:20
PROVIDERS: ADMIT Internal Medicine; ATTEND Internal Medicine
DX: G45.9 Transient cerebral ischemic attack, unspecified (principal); E11.65 Type 2 diabetes mellitus with hyperglycemia; I11.9 Hypertensive heart disease without heart failure; R47.01 Aphasia; I65.23 Occlusion and stenosis of bilateral carotid arteries; E78.00 Pure hypercholesterolemia, unspecified; E78.1 Pure hyperglyceridemia; R47.1 Dysarthria and anarthria; R00.1 Bradycardia, unspecified; I45.10 Unspecified right bundle-branch block; Z79.84 Long term (current) use of oral hypoglycemic drugs; Z83.3 Family history of diabetes mellitus